=== PATIENT | female | born 2000 | race Two or more races ===

== ENCOUNTER 2024-08-10 22:45 | Emergency (ER) | payer SELFPAY ==
[~2024-08-10] VITALS: Ht 152.4 cm; Wt 70.3 kg
[2024-08-10 23:17] VITALS: BP 115/61; TEMP 98.8; O2SAT 98
[2024-08-10] MEDS ORDERED: IBUPROFEN 400 MG TABLET ONE (23:19)
[2024-08-10] MEDS: IBUPROFEN 400 MG TABLET PO ONE (23:20)
== END 2024-08-11 00:29 | disposition home or self-care (01) ==
LOC: ER 22:59
DX: S83.8X1A Sprain of other specified parts of right knee, initial encounter (principal); M79.18 Myalgia, other site; Y08.89XA Assault by other specified means, initial encounter; Y93.89 Activity, other specified; Y92.89 Other specified places as the place of occurrence of the external cause; Y99.8 Other external cause status
CPT/HCPCS: 73564-TC

== ENCOUNTER 2025-05-09 19:57 | Emergency (ER) | payer MEDICAID ==
[~2025-05-09] VITALS: Ht 157.5 cm; Wt 72.6 kg
[2025-05-09] MEDS ORDERED: ONDANSETRON HCL/PF 4 MG/2 ML VIAL ONE (21:17)
[2025-05-09] MEDS: ONDANSETRON HCL/PF 4 MG/2 ML VIAL IV ONE (21:32)
[2025-05-09] MEDS: IV LR 1000 ML 1,000 ML BAG IV ONE (21:32)
[2025-05-09 22:06] LABS: PLATELET COUNT (AUTO) 277 K/uL (150-450); RED BLOOD CELL COUNT(AUTO) 4.70 MIL/uL (4.0-5.2); RED CELL DISTRIBUTION WIDTH 14.0 % (11.5-15.0); WHITE BLOOD COUNT (AUTO) 13.0 K/uL (4.3-11.0)
[2025-05-09 22:21] LABS: CALCIUM, SERUM 9.2 mg/dL (8.5-10.1); CREATININE 0.8 mg/dL (0.6-1.3); SODIUM SERUM 140.0 mmol/L (136-145); UREA NITROGEN, BLOOD 16.0 mg/dL (7-18)
[2025-05-09 22:27] LABS: ASPARTATE AMINOTRANSFERASE 15.0 U/L (15-37); TOTAL PROTEIN, SERUM 8.0 g/dL (6.4-8.2)
[2025-05-09] MEDS ORDERED: ONDA4TAB5 PO (22:56)
[2025-05-09 23:16] LABS: APPEARANCE,URINE CLEAR (CLEAR); BLOOD, URINE TRACE-INTA Ery/uL (NEGATIVE); LEUKOCYTE ESTERASE ,URINE NEGATIVE (NEGATIVE); NITRITE, URINE NEGATIVE (NEGATIVE); UGLUCOSE NEGATIVE (NEGATIVE)
[2025-05-09 23:20] VITALS: BP 116/60; TEMP 98; O2SAT 100
[2025-05-09 23:20] LABS: PREGNANCY TEST URINE QUAL NEGATIVE (NEGATIVE)
[2025-05-09 23:36] LABS: SQUAMOUS EPITHELIAL CELL,UR Moderate /HPF (None Seen)
[2025-05-09 23:37] LABS: URINE AMORPHOUS URATE Few /HPF (None Seen)
[2025-05-09 23:39] LABS: ADD URINE CULTURE NO; CALCIUM OXALATE CRYSTALS,UR Rare /HPF (None Seen)
== END 2025-05-09 23:21 | disposition home or self-care (01) ==
LOC: ER 19:58
DX: K85.90 Acute pancreatitis without necrosis or infection, unspecified (principal); R11.2 Nausea with vomiting, unspecified; T50.905A Adverse effect of unspecified drugs, medicaments and biological substances, initial encounter; Y92.89 Other specified places as the place of occurrence of the external cause
CPT/HCPCS: 36415; 80048-TC; 80076-TC; 81001; 83690-TC; 84703-TC; 85025-TC; J2405; J7120